=== PATIENT | male | born 1945 ===

== ENCOUNTER 2023-05-04 05:23 | Day surgery (SDC) | payer OTHER ==
[~2023-05-04 05:23] MED LIST: MULTIPLE VITAM1 EAC2 PO; OCUVITE LUTEIN1 EAC1 PO; PRAVASTATIN SOD40 MG PO; SYNTHROID137 MCG PO
[2023-05-04] MEDS ORDERED: PERCOCET 5-3251 EACH PO (08:47)
[2023-05-04] MEDS ORDERED: RECTICARE30 GM TOP (08:47)
== END 2023-05-04 14:10 | disposition home or self-care (01) ==
LOC: CIR.AMB 05:23
PROVIDERS: ATTEND Surgery
DX: K64.3 Fourth degree hemorrhoids (principal); K64.4 Residual hemorrhoidal skin tags; K64.5 Perianal venous thrombosis; K64.2 Third degree hemorrhoids; Z20.822 Contact with and (suspected) exposure to COVID-19; K59.00 Constipation, unspecified

== ENCOUNTER 2023-10-19 10:24 | Outpatient (CLI) | payer OTHER ==
[~2023-10-19 10:24] MED LIST changes: +PERCOCET 5-3251 EACH PO; +RECTICARE30 GM TOP
== END 2023-10-19 10:27 | disposition home or self-care (01) ==
LOC: SONOGRAMA 10:24
PROVIDERS: ATTEND Pathology Anatomic Pathology & Clinical Pathology
DX: C73 Malignant neoplasm of thyroid gland (principal); C77.0 Secondary and unspecified malignant neoplasm of lymph nodes of head, face and neck; E04.1 Nontoxic single thyroid nodule

== ENCOUNTER 2024-07-04 08:04 | Outpatient (CLI) | payer OTHER | END 2024-07-04 08:07 | disposition home or self-care (01) | LOC: SONOGRAMA 08:04 | PROVIDERS: ATTEND Pathology Anatomic Pathology & Clinical Pathology | DX: C73 Malignant neoplasm of thyroid gland (principal); R59.9 Enlarged lymph nodes, unspecified ==

== ENCOUNTER 2025-04-20 08:27 | Outpatient (CLI) | payer OTHER | END 2025-04-20 08:32 | disposition home or self-care (01) | LOC: SONOGRAMA 08:27 | PROVIDERS: ATTEND Pathology Anatomic Pathology & Clinical Pathology | DX: C73 Malignant neoplasm of thyroid gland (principal) ==